=== PATIENT | male | born 1945 | race Caucasian/White ===

== ENCOUNTER 2020-08-18 14:23 | Emergency (ER) | payer MEDICARE, OTHER ==
[~2020-08-18] VITALS: Ht 188 cm; Wt 86.4 kg
[~2020-08-18 14:23] MED LIST: AMA1T PO; FLO0.4C PO; FURO40TA4 PO; GEMF600T5 PO; LEVO200T8 PO; METF1000 PO; PANT-47 PO
[2020-08-18 14:30] VITALS: BP 185/88
[2020-08-18] MEDS ORDERED: DOXY100C76 PO (14:48)
[2020-08-18] MEDS ORDERED: CEPH250T PO (14:48)
== END 2020-08-18 14:47 | disposition home or self-care (01) ==
LOC: ER 14:23
DX: S81.801A Unspecified open wound, right lower leg, initial encounter (principal); I48.91 Unspecified atrial fibrillation; I10 Essential (primary) hypertension; E11.9 Type 2 diabetes mellitus without complications; E03.9 Hypothyroidism, unspecified; Z86.73 Personal history of transient ischemic attack (TIA), and cerebral infarction without residual deficits; Z98.890 Other specified postprocedural states; Z88.2 Allergy status to sulfonamides; Z79.2 Long term (current) use of antibiotics; Z79.899 Other long term (current) drug therapy; X58.XXXA Exposure to other specified factors, initial encounter; Y93.89 Activity, other specified; Y92.89 Other specified places as the place of occurrence of the external cause; Y99.8 Other external cause status
CPT/HCPCS: 99283

== ENCOUNTER 2020-11-02 15:04 | Emergency (ER) | payer MEDICARE, OTHER ==
[~2020-11-02] VITALS: Ht 188 cm; Wt 86.0 kg
[~2020-11-02 15:04] MED LIST changes: +ALLO100T PO; -AMA1T PO; -FURO40TA4 PO; -GEMF600T5 PO; +LEVO175T7 PO; -LEVO200T8 PO; -METF1000 PO; -PANT-47 PO
[2020-11-02 15:13] VITALS: BP 156/90
== END 2020-11-02 17:53 ==
LOC: ER 15:05
DX: Z02.89 Encounter for other administrative examinations (principal); R53.83 Other fatigue; I48.91 Unspecified atrial fibrillation; I10 Essential (primary) hypertension; E11.9 Type 2 diabetes mellitus without complications; E03.9 Hypothyroidism, unspecified; Z86.73 Personal history of transient ischemic attack (TIA), and cerebral infarction without residual deficits; Z98.890 Other specified postprocedural states; Z88.2 Allergy status to sulfonamides; Z79.899 Other long term (current) drug therapy
CPT/HCPCS: 99281

== ENCOUNTER 2022-02-22 05:50 | Inpatient (IN) | payer MEDICARE, OTHER ==
[2022-02-21 14:49] LABS: BASOPHILS % (AUTO) 0.4 % (0-1); EOSINOPHILS # (AUTO) 0.2 X10'3 (0-0.9); EOSINOPHILS % (AUTO) 2.6 % (0-6); HEMATOCRIT 42.2 % (42.0-52.0); HEMOGLOBIN 13.7 g/dl (14.0-17.9); LYMPHOCYTES % (AUTO) 26.3 % (21-51); MEAN CORPUSCULAR HEMOGLOBIN 29.4 PG (27.0-31.0); MEAN CORPUSCULAR HGB CONC 32.5 g/dL (33.0-36.5); MEAN CORPUSCULAR VOLUME 90.3 FL (78-98); MEAN PLATELET VOLUME 7.6 FL (7.4-10.4); MONOCYTES # (AUTO) 0.7 X10'3 (0-0.9); MONOCYTES % (AUTO) 8.8 % (2-12); NEUTROPHILS # (AUTO) 4.7 X10'3 (1.8-7.7); NEUTROPHILS % (AUTO) 61.9 % (42-75); PLATELET COUNT 304 X10'3 (140-440); RED BLOOD COUNT 4.67 X10'6 (4.70-6.10); RED CELL DISTRIBUTION WIDTH 14.5 % (11.5-14.5); WHITE BLOOD COUNT 7.6 X10'3 (4.5-11.0)
[2022-02-21 14:56] LABS: ANION GAP 8 (8-16); BLOOD UREA NITROGEN 25 MG/DL (7-18); BUN/CREATININE RATIO 29.8 (5.4-32.0); CALCIUM 9.1 MG/DL (8.5-10.1); CHLORIDE 106 MMOL/L (99-107); CREATININE 0.84 MG/DL (0.60-1.10); GLUCOSE 211 MG/DL (70-104); POTASSIUM 3.8 MMOL/L (3.5-5.1); SODIUM 139 MMOL/L (135-145); TOTAL CARBON DIOXIDE 25.3 MMOL/L (24-32); eGFR 88 ML/MIN
[2022-02-21 14:59] LABS: APTT 26 SECONDS (22-32)
[2022-02-22] VITALS (14 sets, daily range): BP systolic 104–180; BP diastolic 61–101
[~2022-02-22] VITALS: Ht 188 cm; Wt 86.5 kg
[~2022-02-22 05:50] MED LIST changes: +LISI10TA27 PO
[2022-02-22] MEDS ORDERED: ceFAZolin inj. 2,000 MG in dextrose 5%-water 100 ML IV ONE (06:24)
[2022-02-22] MEDS ORDERED: RIVA20TA PO (06:33)
[2022-02-22] MEDS ORDERED: POTA-188 PO (06:33)
[2022-02-22] MEDS ORDERED: midazolam 1 mg/ML 2ml injection ONE ×2 (07:19→09:14)
[2022-02-22] MEDS ORDERED: iohexol 350 MG/ML 50ML vial IV ONE (07:20)
[2022-02-22] MEDS ORDERED: heparin 1,000unit/ml 10ml vial 10 ML ONE (07:20)
[2022-02-22] MEDS ORDERED: fentaNYL/PF 50MCG/1 ML 2ML syringe ONE ×2 (07:20→09:36)
[2022-02-22] MEDS ORDERED: LIDOCAINE 1% w/preservative (10 MG/ML) inj. 10mL VIAL ONE ×2 (08:07→09:34)
--- NOTE | 2022-02-22 10:00 | NUR ---
Patient arrived from short stay post wireless pacemaker at 1000. Has right groin perclose dressing that is clean, dry and intact. Patient has a high blood pressure of 150/92. Rechecked a few times but remained high. Patient denies any pain and seems comfortable. I called recyclable materials sorter to try and speak with MD about a blood pressure of 168/102, but he was in the middle of surgery. Spoke with recyclable materials sorter nurse that said it wasn't a concern. Will continue monitoring patients blood pressure. Called short stay and spoke with Sandra HARRIS who was patients post op nurse to see what his blood pressure had been running. She stated she did not have a set of vitals other than his admit vital signs where his blood pressure was 170s/40s
[2022-02-22] MEDS ORDERED: acetaminophen 325mg tablet PO PRN ×2 (10:55)
[2022-02-22] MEDS ORDERED: proCHLORperazine 10 MG/2 ml inj IV PRN (10:55)
[2022-02-22] MEDS ORDERED: HYDROcodone/acetaminophen 10/325mg tab PO PRN ×2 (10:55)
[2022-02-22] MEDS: normal saline 1000ml 1,000 ML IV SCH ×2 (11:09→20:22)
--- NOTE | 2022-02-22 12:07 | NUR ---
Patient has been told multiple times that he needs to lay flat for the full 4 hours post procedure. Patient has tried to get up and out of bed 4+ times now. Each time he has been told this is serious and that he could bleed with catastrophic results if he does not lay flat. Patient seems to understand upon being told, but then continues to try and get up. Small amount of blood on dressing currently, but bleeding has not continued.
[2022-02-22] MEDS ORDERED: normal saline 1000ml 1,000 ML IV SCH (12:55)
--- NOTE | 2022-02-22 13:25 | NUR ---
Left message with Dr Cortez's answering service to page him about patients consistent high blood pressure since arrival. Patient has been staying in 170s-180s systolic, and 90s-110s Diastolic. Wanting to make sure doctor is aware.
[2022-02-22] MEDS ORDERED: lisinopril 10 MG tablet PO ONE (13:40)
--- NOTE | 2022-02-22 13:56 | NUR ---
Rosales from farm laborer came up to check on patient per MD for high BP. Said to give patient his dose of lisinopril 10MG as patient states he did not take his morning dose because of surgery. Dose administered at 1355
[2022-02-22] MEDS ORDERED: hydrALAZINE 20mg/ml inj. IV PRN (14:10)
[2022-02-22] MEDS ORDERED: hydrALAZINE 20mg/ml inj. IV ONE (14:10)
--- NOTE | 2022-02-22 23:32 | NUR ---
Around 20:20 patient became increasingly more combative, confused, and resistive to care. At 20:45 RN called security to assist, as patient was an elopement risk and made multiple attempts to enter the rooms of other patients. Patient also refused IV placement and blood glucose monitoring. Hospitalist Dr. Ellison paged multiple times, no calls returned. Charge nurse Dariana and warehouse logistics coordinator aware. Around 23:00 patient left the unit and was brought back to his room. Patient remains a high fall and elopement risks. RN will continue to monitor and reassess. No s/s bleeding noted at patient's right groin surgical incision cite.
[2022-02-23 02:00] VITALS: BP 126/76
[2022-02-23 06:00] VITALS: BP 164/97
[2022-02-23 06:39] LABS: BASOPHILS # (AUTO) 0.1 X10'3 (0-0.2); BASOPHILS % (AUTO) 0.8 % (0-1); EOSINOPHILS # (AUTO) 0.1 X10'3 (0-0.9); EOSINOPHILS % (AUTO) 1.8 % (0-6); HEMATOCRIT 44.5 % (42.0-52.0); HEMOGLOBIN 14.5 g/dl (14.0-17.9); LYMPHOCYTES # (AUTO) 2.1 X10'3 (1.1-4.8); LYMPHOCYTES % (AUTO) 26.7 % (21-51); MEAN CORPUSCULAR HEMOGLOBIN 29.5 PG (27.0-31.0); MEAN CORPUSCULAR HGB CONC 32.6 g/dL (33.0-36.5); MEAN CORPUSCULAR VOLUME 90.5 FL (78-98); MEAN PLATELET VOLUME 7.9 FL (7.4-10.4); MONOCYTES # (AUTO) 0.7 X10'3 (0-0.9); MONOCYTES % (AUTO) 8.5 % (2-12); NEUTROPHILS # (AUTO) 4.8 X10'3 (1.8-7.7); NEUTROPHILS % (AUTO) 62.2 % (42-75); PLATELET COUNT 331 X10'3 (140-440); RED BLOOD COUNT 4.92 X10'6 (4.70-6.10); RED CELL DISTRIBUTION WIDTH 14.4 % (11.5-14.5); WHITE BLOOD COUNT 7.7 X10'3 (4.5-11.0)
[2022-02-23 06:45] LABS: ALBUMIN 3.1 G/DL (3.4-5.0); ANION GAP 6 (8-16); BLOOD UREA NITROGEN 16 MG/DL (7-18); BUN/CREATININE RATIO 19.5 (5.4-32.0); CALCIUM 9.2 MG/DL (8.5-10.1); CHLORIDE 103 MMOL/L (99-107); CREATININE 0.82 MG/DL (0.60-1.10); GLUCOSE 138 MG/DL (70-104); POTASSIUM 3.9 MMOL/L (3.5-5.1); SODIUM 138 MMOL/L (135-145); TOTAL CARBON DIOXIDE 29.5 MMOL/L (24-32); eGFR > 90 ML/MIN
[2022-02-23 07:27] VITALS: BP_SYST 164
[2022-02-23] MEDS ORDERED: allopurinol 100mg tablet PO SCH (08:00)
[2022-02-23] MEDS ORDERED: tamsulosin 0.4mg capsule PO SCH (08:00)
[2022-02-23] MEDS ORDERED: lisinopril 10 MG tablet PO SCH (08:00)
[2022-02-23] MEDS ORDERED: potassium chloride 10mEq ER tablet PO SCH (08:00)
[2022-02-23] MEDS ORDERED: levoTHYROXINE 175mcg tablet PO SCH (08:00)
--- NOTE | 2022-02-23 08:27 | NUR ---
Patient in room PCU 3026. I have received report from Ashwini and had the opportunity to ask questions and assume patient care.
--- NOTE | 2022-02-23 08:28 | NUR ---
Spoke with sister in law Sheri who reported this am she will be with the patient multimedia specialist at home once he is discharged. Sheri [phone]
[2022-02-23 08:32] LABS: MAGNESIUM 1.8 MG/DL (1.5-2.4)
[2022-02-23] MEDS ORDERED: magnesium 2GM in 50ml NS 50 ML IV PRN (08:40)
[2022-02-23] MEDS ORDERED: magnesium 4gm in 100ml NS 100 ML IV PRN (08:40)
[2022-02-23] MEDS ORDERED: magnesium Cl slow-release 64mg tablet PO PRN (08:40)
[2022-02-23] MEDS ORDERED: METO-384 PO (13:29)
--- NOTE | 2022-02-23 14:57 | NUR ---
Patient was discharged went over discharge instructions and answered all questions
[2022-02-23] MEDS ORDERED: rivaroxaban 20mg tablet PO SCH (18:00)
== END 2022-02-23 14:58 | disposition home or self-care (01) | DRG 229 ==
LOC: SSTAY O 05:50 → PCU 3S 10:43
PROVIDERS: ADMIT Internal Medicine Cardiovascular Disease; ATTEND Internal Medicine Cardiovascular Disease
PROC: 02HK3NZ Insertion of Intracardiac Pacemaker into Right Ventricle, Percutaneous Approach (ICD-10-PCS; principal; 2022-02-22)
PROC: B2141ZZ Fluoroscopy of Right Heart using Low Osmolar Contrast (ICD-10-PCS; 2022-02-22)
PROC: 4B02XSZ Measurement of Cardiac Pacemaker, External Approach (ICD-10-PCS; 2022-02-23)
DX: I49.5 Sick sinus syndrome (principal); E03.9 Hypothyroidism, unspecified; E11.9 Type 2 diabetes mellitus without complications; E78.5 Hyperlipidemia, unspecified; G47.33 Obstructive sleep apnea (adult) (pediatric); K21.9 Gastro-esophageal reflux disease without esophagitis; I10 Essential (primary) hypertension; I65.22 Occlusion and stenosis of left carotid artery; I25.10 Atherosclerotic heart disease of native coronary artery without angina pectoris; I48.91 Unspecified atrial fibrillation; N40.0 Benign prostatic hyperplasia without lower urinary tract symptoms; K57.90 Diverticulosis of intestine, part unspecified, without perforation or abscess without bleeding; M10.9 Gout, unspecified; M81.0 Age-related osteoporosis without current pathological fracture; Z79.01 Long term (current) use of anticoagulants; Z85.118 Personal history of other malignant neoplasm of bronchus and lung; Z90.81 Acquired absence of spleen; Z98.42 Cataract extraction status, left eye; Z98.41 Cataract extraction status, right eye; Z80.42 Family history of malignant neoplasm of prostate; Z80.3 Family history of malignant neoplasm of breast; Z80.9 Family history of malignant neoplasm, unspecified; Z87.891 Personal history of nicotine dependence; Z00.6 Encounter for examination for normal comparison and control in clinical research program
CPT/HCPCS: 33274; 36415; 76937; 80048; 82948; 83735; 85025; 85610; 85730; 93005; 99152; 99153; A4620; A6258; C1760; C1769; C1894; G0378; J0360; J1644; J2250; J3010; J7030; J7040; Q9967